=== PATIENT | female | born 1965 | race Caucasian/White ===

== ENCOUNTER → 2016-10-09 | Outpatient (CLI) | payer BC ==
[~2016-10-09] MED LIST: PRED50TA PO; PRLSR20 PO
== END | disposition home or self-care (01) ==
LOC: C.PAPS 12:08
PROVIDERS: ATTEND Obstetrics & Gynecology
DX: Z01.419 Encounter for gynecological examination (general) (routine) without abnormal findings (principal)

== ENCOUNTER → 2017-01-11 | Outpatient (CLI) | payer BC ==
--- NOTE | 2017-01-11 09:37 | DIAGNOSTIC IMAGING REPORT ---
Soft tissue neck ULTRASOUND HISTORY: LYMPHADENOPATHY COMPARISON: None. FINDINGS: Moderate bilateral cervical adenopathy. The right neck demonstrates several nodes measuring up to 2.2 x 1.5 cm. On the left, nodes are present measuring up to 3 x 1.5 cm. IMPRESSION: Bilateral cervical adenopathy. 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 Electronically signed by: Julián Cunningham M.D. 01/11/2017 9:35 AM Dictated Date/Time: 01/11/2017 9:34 AM
== END | disposition home or self-care (01) ==
LOC: C.ULTRBC 09:09
PROVIDERS: ATTEND Physician Assistant Medical
DX: R59.0 Localized enlarged lymph nodes (principal)

== ENCOUNTER → 2017-01-15 | Outpatient (CLI) | payer BC ==
--- NOTE | 2017-01-15 13:49 | DIAGNOSTIC IMAGING REPORT ---
Ultrasound-guided fine-needle aspiration GUIDANCE NEEDLE PLACEMENT CLINICAL HISTORY: R59.1 adenopathy TECHNIQUE: Ultrasound-guided fine-needle aspiration COMPARISON STUDY: Soft tissue neck ultrasound dated 01/11/2017 FINDINGS: Following description of procedure and informed consent, 3 passes with a 25-gauge needle were made to a dominant lymph node of the upper left neck. There are no complications. IMPRESSION: Successful fine-needle aspiration of a dominant lymph node upper left cervical neck . Pathology is pending. Electronically signed by: Julián Cunningham M.D. 01/15/2017 1:48 PM Dictated Date/Time: 01/15/2017 1:47 PM
== END | disposition home or self-care (01) ==
LOC: C.ULTR 12:37
PROVIDERS: ATTEND Physician Assistant Medical
DX: R59.1 Generalized enlarged lymph nodes (principal)

== ENCOUNTER → 2017-02-09 | Outpatient (CLI) | payer BC ==
--- NOTE | 2017-02-09 09:19 | DIAGNOSTIC IMAGING REPORT ---
NECK ULTRASONOGRAPHY CLINICAL HISTORY: LYMPHADENOPATHY COMPARISON STUDY: 01/11/2017 FINDINGS: There is mild bilateral cervical lymphadenopathy. The largest lymph node on the right measures 23 x 16 x 9 mm (previously 24 x 16 x 11 mm). The largest lymph node in the left measures 25 x 19 x 12 mm (previously 30 x 19 x 12 mm) IMPRESSION: Minimal decrease in the size of the bilateral cervical lymph nodes. Electronically signed by: Silviano Chance M.D. 02/09/2017 9:18 AM Dictated Date/Time: 02/09/2017 9:16 AM
== END | disposition home or self-care (01) ==
LOC: C.ULTRBC 08:49
PROVIDERS: ATTEND Physician Assistant Medical
DX: R59.1 Generalized enlarged lymph nodes (principal)

== ENCOUNTER → 2017-04-02 | Outpatient (CLI) | payer BC ==
[~2017-04-02] MED LIST changes: -PRED50TA PO
--- NOTE | 2017-04-02 12:36 | DIAGNOSTIC IMAGING REPORT ---
CHEST 2 VIEWS ROUTINE CLINICAL HISTORY: Cough, fever dyspnea COMPARISON STUDY: No previous studies for comparison. FINDINGS: The bones soft tissues and hemidiaphragms are normal. The cardiomediastinal silhouette is normal. The lungs are clear. The pulmonary vasculature is normal. IMPRESSION: Negative chest. The above report was generated using voice recognition software. It may contain grammatical, syntax or spelling errors. Electronically signed by: Julián Cunningham M.D. 04/02/2017 12:34 PM Dictated Date/Time: 04/02/2017 12:34 PM
== END | disposition home or self-care (01) ==
LOC: C.RADBC 12:20
PROVIDERS: ATTEND Internal Medicine
DX: R50.9 Fever, unspecified (principal); R05 Cough

== ENCOUNTER → 2017-04-13 | Outpatient (CLI) | payer BC ==
--- NOTE | 2017-04-14 13:41 | MAMMOGRAPHY REPORT ---
BILATERAL DIGITAL SCREENING MAMMOGRAM TOMOSYNTHESIS WITH CAD: 04/13/2017 CLINICAL HISTORY: Routine screening. Patient has no complaints. TECHNIQUE: Breast tomosynthesis in addition to standard 2D mammography was performed. Current study was also evaluated with a Computer Aided Detection (CAD) system. COMPARISON: Comparison is made to exams dated: 01/10/2016 mammogram, 01/08/2015 mammogram, 01/08/2014 m ammogram, 01/04/2014 mammogram, 01/02/2013 mammogram, and 12/28/2011 mammogram - [facility] enter. BREAST COMPOSITION: There are scattered areas of fibroglandular density in both breasts. FINDINGS: Again noted are plump yet morphologically normal lymph nodes projecting over both pectorali s muscles on the MLO views. An intramammary lymph node in the right upper outer quadrant is minimall y increased in size comparing to the more remote 2007, 2008 and 2009 mammogram. No new suspicious ma ss, architectural distortion or cluster of microcalcifications is seen. IMPRESSION: ACR BI-RADS CATEGORY 1: NEGATIVE 1. There is no mammographic evidence of malignancy. A 1 year screening mammogram is recommended. 2. There are plump yet morphologically normal bilateral axillary lymph nodes and an intramammary lym ph node in the right upper outer quadrant has minimally increased in size comparing to mammograms per formed 7+ years ago. Based on pathology results from a recent FNA performed of the cervical lymph no de in January 2017 there is no evidence of lymphoma. However, given the slow interval mammographic lee e, continued follow-up is recommended. The patient will receive written notification of the results. Approximately 10% of breast cancers are not detected with mammography. A negative mammographic report should not delay biopsy if a clinically suggestive mass is present. Josee Echevarria M.D. ay/:04/13/2017 16:22:54 [employer] Dancer: Amanda LPOEZ(Eliud)(Lb)(BD), [facility] letter sent: Normal 1/2 BI-RADS Code: ACR BI-RADS Category 1: Negative
== END | disposition home or self-care (01) ==
LOC: C.MAMM 13:27
PROVIDERS: ATTEND Obstetrics & Gynecology
DX: Z12.31 Encounter for screening mammogram for malignant neoplasm of breast (principal)

== ENCOUNTER → 2017-10-15 | Outpatient (CLI) | payer OTHER | END | disposition home or self-care (01) | LOC: C.LABSPEC 10:43 | PROVIDERS: ATTEND Obstetrics & Gynecology | DX: N76.0 Acute vaginitis (principal) ==

== ENCOUNTER → 2017-10-15 | Outpatient (CLI) | payer OTHER | END | disposition home or self-care (01) | LOC: C.PAPS 15:01 | PROVIDERS: ATTEND Obstetrics & Gynecology | DX: Z12.4 Encounter for screening for malignant neoplasm of cervix (principal); R87.619 Unspecified abnormal cytological findings in specimens from cervix uteri ==

== ENCOUNTER → 2017-11-24 | Outpatient (CLI) | payer OTHER | END | disposition home or self-care (01) | LOC: C.PATHSPEC 17:45 | PROVIDERS: ATTEND Obstetrics & Gynecology | DX: R87.619 Unspecified abnormal cytological findings in specimens from cervix uteri (principal) ==

== ENCOUNTER → 2018-04-25 | Day surgery (SDC) | payer OTHER ==
[2018-04-20 08:25] VITALS: Ht 165.1 cm; Wt 70.5 kg
[~2018-04-25] VITALS: Ht 165.1 cm; Wt 70.5 kg
[~2018-04-25] MED LIST changes: +ASPCH81X PO; +LIDOCAINE HCL 2% 2 ML VIAL (20MG/ML) ONE; +MIDAZOLAM HCL 1 MG/ML 2ML VIAL ONE; +PROPOFOL IV EMULSION 10 MG/ML 20 ML VIAL ONE; +SODIUM CHLORIDE 0.9% 500ML 500 ML IV ONE
[2018-04-25 10:01] VITALS: TEMP 36.7
--- NOTE | 2018-04-25 10:29 | Endo History and Physical ---
History & Physical Date of Service: Apr 25, 2018. Chief Complaint: IRON DEFICIENCY, ANEMIA Referring Physician: DR. JUDIT PLAZA History of Present Illness 52 yo CF who presents for Colonoscopy secondary to iron deficiency anemia. Past Surgical History Hx Cardiac Surgery: No Hx Internal Defibrillator: No Hx Pacemaker: No Hx Abdominal Surgery: Yes (SPLEENECTOMY, APPY) Hx of Implantable Prosthesis: No Hx Post-Op Nausea and Vomiting: No Hx Cancer Surgery: No Hx Thoracic Surgery: No Hx Orthopedic: No Hx Urinary Tract Surgery: Yes (CYSTOSCOPY AND KIDNEY STONE REMOVAL) Family History IBD Social History Smoking Status: Former Smoker Hx Substance Use: No Hx Alcohol Use: Yes (OCCASIONALLY) Allergies Coded Allergies: Sulfa Drugs (Verified Allergy, Mild, HIVES, 04/25/18) Penicillins (Verified Allergy, Unknown, HIVES, 04/20/18) Uncoded Allergies: APPLES,PEACHES (Allergy, Unknown, HIVES, 03/26/17) Current Medications Reported Home Medications Medications Dose Route/Sig Max Daily Dose Days Date Category Aspirin Chewable (Aspirin) 81 Mg Chew 81 Mg PO QAM 04/20/18 Reported Prilosec (Omeprazole) 20 Mg Capcr 20 Mg PO QAM 02/21/11 Reported Vital Signs Weight (Kilograms): 70.45 Height (Feet): 5 Height (Inches): 5 Date Time Temp Pulse Resp B/P (MAP) Pulse Ox O2 Delivery O2 Flow Rate FiO2 04/25/18 10:01 36.7 87 16 122/87 (99) 98 Room Air Physical Exam General Appearance: WD/WN, no apparent distress Respiratory/Chest: Auscultation: breath sounds normal Cardiovascular: Heart Auscultation: RRR Abdomen: Bowel Sounds: normal Inspection & Palpation: soft, non-distended, no tenderness, guarding & rebound Assessment and Plan Assessment: 52 yo CF who presents for Colonoscopy secondary to iron deficiency anemia. Plan: Proceed with colonoscopy.
--- NOTE | 2018-04-25 11:22 | Discharge Instructions ---
Endoscopy Patient Instructions Date / Procedure(s) Performed Apr 25, 2018. Colonoscopy Allergy Information Coded Allergies: Sulfa Drugs (Verified Allergy, Mild, HIVES, 04/25/18) Penicillins (Verified Allergy, Unknown, HIVES, 04/20/18) Uncoded Allergies: APPLES,PEACHES (Allergy, Unknown, HIVES, 03/26/17) Discharge Date / Findings Apr 25, 2018. Rectal polyp (not collected) Internal hemorrhoids Medication Instructions Stopped Medication(s): ASPIRIN OK to resume all medications today as prescribed Reported Home Medications Medications Dose Route/Sig Max Daily Dose Days Date Category Aspirin Chewable (Aspirin) 81 Mg Chew 81 Mg PO QAM 04/20/18 Reported Prilosec (Omeprazole) 20 Mg Capcr 20 Mg PO QAM 02/21/11 Reported Provider Instructions Activity Restrictions - No exercising or heavy lifting for 24 hours. - Do not drink alcohol the day of the procedure. - Do not drive a car or operate machinery until the day after the procedure. - Do not make any important decisions or sign important papers in 24 hours after the procedure. Following Day: - Return to full activity which may include returning to work/school. Diet Start your diet with liquids and light foods (jello, soup, juice, toast). Then eat your usual diet if not nauseated. Treatment For Common After Affects For mild abdominal pain, bloating, or excessive gas: - Rest - Eat lightly - Lie on right side Follow-Up Information Follow-up with DR. JUDIT PLAZA as scheduled Anesthesia Information What You Should Know You have had a procedure that required some medicine to reduce anxiety and discomfort. This treatment is called moderate sedation. After receiving the treatment, you may be sleepy, but you will be able to breathe on your own. The effects of the treatment may last for several hours. Follow these instructions along with Activity/Diet recommendations noted above: * Do NOT do anything where dizziness or clumsiness would be dangerous. * Rest quietly at home today, then you can be up and about tomorrow. * Have a responsible person stay with you the rest of today. * You may have had an I.V. today. If so, you may take the dressing off later today. Recommendations Call your doctor if: * Trouble breathing * Continuous vomiting for more than 24 hours * Temperature above 101 degrees * Severe abdominal pain or bloating * Pain not relieved by pain medicine ordered * There is increased drainage or redness from any incision * A large amount of rectal bleeding greater than 2-3 tablespoons. (If you had a polyp/s removed or have hemorrhoids, a small amount of blood - from the rectum is to be expected.) * You have any unanswered questions or concerns. IN THE EVENT OF A SERIOUS EMERGENCY, GO TO THE NEAREST EMERGENCY ROOM Your discharge instructions were prepared by provider Lexx Davis. Patient Instructions Signature Page Radha Lisa Patient (or Guardian) Signature/Date: I have read and understand the instructions given to me by my caregivers. Caregiver/RN/Doctor Signature/Date: The above-named patient and/or guardian has received patient instructions on this date. + Original Patient Signature Page (only) stays with chart. Please make copy for patient.
--- NOTE | 2018-04-25 11:29 | GI REPORT ---
Patient Name: Radha Lisa Procedure Date: 04/25/2018 10:55 AM Date of : 1965 Admit Type: Outpatient Age: 52 Gender: Female Attending MD: Lexx Davis DO Procedure: Colonoscopy Providers: Lexx Davis DO Referring MD: Catherine Santana Indications: Iron deficiency anemia Medicines: Monitored Anesthesia Care Complications: No immediate complications. Estimated Blood Loss: Estimated blood loss: none. Procedure: Pre-Anesthesia Assessment: - Prior to the procedure, a History and Physical was performed, and patient medications and allergies were reviewed. The patient's tolerance of previous anesthesia was also reviewed. The risks and benefits of the procedure and the sedation options and risks were discussed with the patient. All questions were answered, and informed consent was obtained. Prior Anticoagulants: The patient has taken aspirin, last dose was 3 days prior to procedure. ASA Grade Assessment: II - A patient with mild systemic disease. After reviewing the risks and benefits, the patient was deemed in satisfactory condition to undergo the procedure. After I obtained informed consent, the scope was passed under direct vision. Throughout the procedure, the patient's blood pressure, pulse, and oxygen saturations were monitored continuously. The scope was introduced through the anus and advanced to the terminal ileum. The colonoscopy was performed without difficulty. The patient tolerated the procedure well. The quality of the bowel preparation was good. The terminal ileum, ileocecal valve, appendiceal orifice, and rectum were photographed. Findings: The perianal and digital rectal examinations were normal. A 3 mm polyp was found in the rectum. The polyp was flat. The polyp was removed with a cold snare. Resection was complete, but the polyp tissue was not retrieved. Non-bleeding internal hemorrhoids were found during retroflexion. The hemorrhoids were small. Impression: - One 3 mm polyp in the rectum, removed with a cold snare. Complete resection. Polyp tissue not retrieved. - Non-bleeding internal hemorrhoids. Recommendation: - Resume previous diet. - Continue present medications. - Await pathology results. - Return to primary care physician as previously scheduled. Lexx Davis DO 04/25/2018 11:28:27 AM This report has been signed electronically. Note Initiated On: 04/25/2018 10:55 AM Number of Addenda: 1 I attest to the content of the Intraoperative Record and orders documented therein, exceptions below Addendum Number: 1 Addendum Date: 04/27/2018 8:55:38 AM A small polyp was removed, however, it was not retrieved for pathologic interpretation. Repeat colonoscopy in 5 years. Lexx Davis, 04/27/2018 8:56:41 AM This report has been signed electronically. {[id number]}
--- NOTE | 2018-04-25 11:39 | Anesthesiology Progress Note ---
Anesthesia Post Op Note Date & Time Apr 25, 2018 at 11:39 Vital Signs Pain Intensity: 0 Vital Signs Past 12 Hours Date Time Temp Pulse Resp B/P (MAP) Pulse Ox O2 Delivery O2 Flow Rate FiO2 04/25/18 11:34 80 16 103/86 (92) 96 Room Air 04/25/18 11:26 77 16 94/61 (72) 95 Room Air 04/25/18 10:01 36.7 87 16 122/87 (99) 98 Room Air Notes Mental Status: alert / awake / arousable, participated in evaluation Pt Amnestic to Procedure: Yes Nausea / Vomiting: adequately controlled Pain: adequately controlled Airway Patency, RR, SpO2: stable & adequate BP & HR: stable & adequate Hydration State: stable & adequate Anesthetic Complications: no major complications apparent
[2018-04-25 11:51] VITALS: BP 125/83; PULSE 71; O2SAT 98
== END | disposition home or self-care (01) ==
LOC: C.GI 09:26
PROVIDERS: ATTEND Internal Medicine
DX: Z12.11 Encounter for screening for malignant neoplasm of colon (principal); D50.9 Iron deficiency anemia, unspecified; D12.8 Benign neoplasm of rectum; I10 Essential (primary) hypertension; K21.9 Gastro-esophageal reflux disease without esophagitis; Z88.0 Allergy status to penicillin; Z88.2 Allergy status to sulfonamides; Z90.49 Acquired absence of other specified parts of digestive tract; Z90.81 Acquired absence of spleen